=== PATIENT | male | born 1970 | race African-American/Black ===

== ENCOUNTER 2017-02-18 17:12 | Emergency (ER) | payer OTHER ==
[2017-02-18] MEDS ORDERED: Acetaminophen 500 MG TAB ONE (17:24)
== END 2017-02-18 18:12 | disposition home or self-care (01) ==
LOC: SCSER 17:12
DX: J11.1 Influenza due to unidentified influenza virus with other respiratory manifestations (principal); F41.9 Anxiety disorder, unspecified; F32.9 Major depressive disorder, single episode, unspecified; F17.210 Nicotine dependence, cigarettes, uncomplicated; Z71.6 Tobacco abuse counseling
CPT/HCPCS: 87804; 99406

== ENCOUNTER 2017-11-26 10:12 | Emergency (ER) | payer OTHER | END 2017-11-26 10:43 | disposition home or self-care (01) | LOC: SCSER 10:12 | DX: J06.9 Acute upper respiratory infection, unspecified (principal); F17.210 Nicotine dependence, cigarettes, uncomplicated; F41.9 Anxiety disorder, unspecified; F32.9 Major depressive disorder, single episode, unspecified | CPT/HCPCS: 99283 ==

== ENCOUNTER 2018-03-09 10:12 | Emergency (ER) | payer OTHER ==
[2018-03-09] MEDS ORDERED: Lidocaine 1% 20 ML MDV ONE (10:38)
[2018-03-09] MEDS ORDERED: Adacel (T-DAP) 0.5 ML SYRINGE ONE (10:38)
== END 2018-03-09 11:16 | disposition home or self-care (01) ==
LOC: SCSER 10:12
DX: S61.411A Laceration without foreign body of right hand, initial encounter (principal); F31.9 Bipolar disorder, unspecified; F41.9 Anxiety disorder, unspecified; F17.210 Nicotine dependence, cigarettes, uncomplicated; Z79.899 Other long term (current) drug therapy; W01.0XXA Fall on same level from slipping, tripping and stumbling without subsequent striking against object, initial encounter
CPT/HCPCS: 12002; 90471; 90715; J2001

== ENCOUNTER 2018-11-24 23:31 | Emergency (ER) | payer OTHER | END 2018-11-25 00:08 | disposition home or self-care (01) | LOC: SCSER 23:31 | DX: J30.9 Allergic rhinitis, unspecified (principal); J02.9 Acute pharyngitis, unspecified; F31.9 Bipolar disorder, unspecified; F41.9 Anxiety disorder, unspecified; F17.210 Nicotine dependence, cigarettes, uncomplicated; Z79.899 Other long term (current) drug therapy | CPT/HCPCS: 87081; 87430; 99406 ==